=== PATIENT | female | born 1995 | race Caucasian/White ===

== ENCOUNTER 2017-09-17 14:25 | Emergency (ER) | payer OTHER ==
[~2017-09-17] VITALS: Ht 167.6 cm; Wt 59.9 kg
[2017-09-17 14:30] VITALS: TEMP 36.9; Ht 167.6 cm; Wt 59.9 kg
[2017-09-17] MEDS ORDERED: BCPILLS PO (14:44)
[2017-09-17] MEDS ORDERED: SODIUM CHLORIDE 0.9% 1000ML 1,000 ML IV STA (14:53)
[2017-09-17] MEDS ORDERED: CEFTRIAXONE SOD INJ 1 GM ADDVIAL IV STA (14:53)
--- NOTE | 2017-09-17 15:07 | EMERGENCY ROOM VISIT NOTE ---
History Report prepared by [place]: Eva Moser Under the Supervision of: Dr. Chrystal Tony M.D. First contact with patient: 14:44 Chief Complaint: FLU LIKE SX Stated Complaint: SORE THROAT, FEVER History of Present Illness The patient is a 22 year old female who presents to the Emergency Room with complaints of a constant sore throat and fever beginning two days [employer]. She states she was at [facility] yesterday for her sore throat and they recommended she come into the hospital for her blood pressure which was 88/62 there. She was given a shot of ceftriaxone at 1700 yesterday for her throat but currently has a fever and sweats. She denies any coughing, abdominal pain, diarrhea, and SOB. The patient reports she was diagnosed with a yeast infection but noticed it was better today. The patient notes she has not started her Diflucan or clindamycin due to a long wait at the pharmacy counter. She states there had a slight burning while urinating yesterday but it is mostly gone today. She denies any chance of . 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 A total of 10 systems reviewed and were otherwise negative. Past Medical & Surgical Patient denies significant medical history Family History No pertinent family history Social History Smoking Status: Never Smoker Smokeless Tobacco Use: Unknown Marital Status: single Occupation Status: student Current/Historical Medications Scheduled Control Pills ( Control Pills), 1 TAB PO DAILY Cefdinir (Omnicef), 300 MG PO Q12H Allergies Coded Allergies: No Known Allergies (Unverified , 09/17/17) Physical Exam Vital Signs Date Time Temp Pulse Resp B/P (MAP) Pulse Ox O2 Delivery O2 Flow Rate FiO2 09/17/17 17:00 97 18 120/69 99 Room Air 09/17/17 16:36 82 09/17/17 14:30 36.9 101 17 110/74 98 Room Air Physical Exam Vital signs reviewed. Blood pressure seems to be stable. General: Well-appearing female, in no significant distress. HEENT: No scleral icterus, PERRLA, neck supple. Atraumatic. Exudates to the tonsils bilaterally. Cardiovascular: Regular rate and rhythm, no extra sounds. Pulmonary: Clear to auscultation bilaterally, normal work of breathing. Abdomen: Soft, nontender, nondistended, positive bowel sounds. Musculoskeletal: Atraumatic, no peripheral edema. Neurologic: Patient awake alert and oriented x 3. Skin: Warm, dry, no rash Medical Decision & Procedures Laboratory Results 09/17/17 15:30 Red Blood Count 4.14, Mean Corpuscular Volume 84.8, Mean Corpuscular Hemoglobin 28.0, Mean Corpuscular Hemoglobin Concent 33.0, Mean Platelet Volume 10.3, Neutrophils (%) (Auto) 74.1, Lymphocytes (%) (Auto) 14.0, Monocytes (%) (Auto) 11.4, Eosinophils (%) (Auto) 0.1, Basophils (%) (Auto) 0.1, Neutrophils # (Auto ) 10.46, Lymphocytes # (Auto) 1.97, Monocytes # (Auto) 1.61, Eosinophils # (Auto ) 0.02, Basophils # (Auto) 0.02 09/17/17 15:30 Test 09/17/17 15:30 09/17/17 15:39 09/17/17 15:40 White Blood Count 14.12 K/uL (4.8-10.8) Red Blood Count 4.14 M/uL (4.2-5.4) Hemoglobin 11.6 g/dL (12.0-16.0) Hematocrit 35.1 % (37-47) Mean Corpuscular Volume 84.8 fL (80-100) Mean Corpuscular Hemoglobin 28.0 pg (25-34) Mean Corpuscular Hemoglobin Concent 33.0 g/dl (32-36) Platelet Count 265 K/uL (130-400) Mean Platelet Volume 10.3 fL (7.4-10.4) Neutrophils (%) (Auto) 74.1 % Lymphocytes (%) (Auto) 14.0 % Monocytes (%) (Auto) 11.4 % Eosinophils (%) (Auto) 0.1 % Basophils (%) (Auto) 0.1 % Neutrophils # (Auto) 10.46 K/uL (1.4-6.5) Lymphocytes # (Auto) 1.97 K/uL (1.2-3.4) Monocytes # (Auto) 1.61 K/uL (0.11-0.59) Eosinophils # (Auto) 0.02 K/uL (0-0.5) Basophils # (Auto) 0.02 K/uL (0-0.2) RDW Standard Deviation 40.4 fL (36.4-46.3) RDW Coefficient of Variation 13.1 % (11.5-14.5) Immature Granulocyte % (Auto) 0.3 % Immature Granulocyte # (Auto) 0.04 K/uL (0.00-0.02) Anion Gap 7.0 mmol/L (3-11) Est Creatinine Clear Calc Drug Dose 128.1 ml/min Estimated GFR () 147.1 Estimated GFR (Non- 126.9 BUN/Creatinine Ratio 10.5 (10-20) Calcium Level 9.1 mg/dl (8.5-10.1) Total Bilirubin 0.4 mg/dl (0.2-1) Direct Bilirubin < 0.1 mg/dl (0-0.2) Aspartate Amino Transf (AST/SGOT) 29 U/L (15-37) Alanine Aminotransferase (ALT/SGPT) 20 U/L (12-78) Alkaline Phosphatase 42 U/L (45-117) Total Protein 7.7 gm/dl (6.4-8.2) Albumin 3.6 gm/dl (3.4-5.0) Bedside Lactic Acid Venous 0.64 mmol/L (0.90-1.70) Laboratory results per my review. Medications Administered Medications (Trade) Dose Ordered Sig/Zane Route Start Time Stop Time Status Last Admin Dose Admin Sodium Chloride 1,000 ml @ 999 mls/hr Q1H1M STAT IV 09/17/17 14:53 09/17/17 15:53 DC 09/17/17 16:01 999 MLS/HR Ceftriaxone Sodium (Rocephin Inj) 1 gm NOW STAT IV 09/17/17 14:53 09/17/17 14:56 DC 09/17/17 16:01 1 GM Azithromycin (Zithromax Tab) 1,000 mg NOW ONCE PO 09/17/17 17:45 09/17/17 17:46 DC 09/17/17 17:40 1,000 MG ED Course 1447: Past medical records reviewed. The patient was evaluated in room C10. A complete history and physical examination was performed. 1453: Rocephin Inj 1 gm IV Sodium Chloride 1704: Upon reevaluation, the patient appeared to have improvement of her symptoms. I discussed findings with her. She verbalized agreement of the treatment plan. She was discharged home. Medical Decision Differential diagnosis: Etiologies such as strep pharyngitis, viral pharyngitis, mononucleosis, influenza, dehydration, UTI, vaginitis, STI, as well as others were entertained. This patient was evaluated and appeared to be in no significant distress. Physical examination reveals a tonsillitis. The patient has had several pelvic exams therefore it was deferred today. Cultures are pending. A GC and Chlamydia swab was performed on the tonsils. A general throat culture was also performed. The patient stated that her vaginitis seemed to improve after her dose of ceftriaxone yesterday. She did not start her Diflucan or clindamycin. The patient was given an additional dose of IV ceftriaxone 1 g. She was hydrated with normal saline solution. Patient was given a dose of oral ceftriaxone 1000 mg and a prescription for Omnicef. She was advised to not fill the clindamycin prescription. She should likely use the Diflucan while awaiting cultures and vaginitis continues. 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 She will return to the ER for worsening symptoms or any medical concerns. Medication Reconcilliation Current Medication List: was personally reviewed by me Blood Pressure Screening Patient's blood pressure: Normal blood pressure Blood pressure disposition: Did not require urgent referral Impression Primary Impression: Tonsillitis Additional Impression: Vaginitis Scribe Attestation The scribe's documentation has been prepared under my direction and personally reviewed by me in its entirety. I confirm that the note above accurately reflects all work, treatment, procedures, and medical decision making performed by me. Departure Information Dispostion Home / Self-Care Prescriptions Cefdinir (Omnicef) 300 Mg Cap 300 MG PO Q12H for 8 Days, #16 CAP Prov: Chrystal Tony M.D. 09/17/17 Referrals No Doctor, Assigned (PCP) Forms HOME CARE DOCUMENTATION FORM, IMPORTANT VISIT INFORMATION Patient Instructions My [facility] Additional Instructions Diagnosis: Tonsillitis, vaginitis Please contact [facility] for follow-up regarding your cultures. You were given 1 g of ceftriaxone and 1 g of azithromycin in the emergency department today. Start Omnicef 300 mg twice daily for 8 days, starting tomorrow. Tylenol 650 mg every 6 hours as needed for pain or fever. Ibuprofen 600 mg every 6 hours as needed for pain or fever. Drink plenty of clear fluids. Follow-up with [facility] in 1 week for reevaluation. Return to the ER for worsening of symptoms or any medical concerns. Problem Qualifiers
[2017-09-17 15:48] LABS: BASO % 0.1 %; BASO ABS # 0.02 K/uL (0-0.2); EOS % 0.1 %; EOS ABS # 0.02 K/uL (0-0.5); HEMATOCRIT 35.1 % (37-47); HEMOGLOBIN 11.6 g/dL (12.0-16.0); IG# 0.04 K/uL (0.00-0.02); LYMPH ABS # 1.97 K/uL (1.2-3.4); MEAN CELL VOLUME 84.8 fL (80-100); MEAN PLATELET VOLUME 10.3 fL (7.4-10.4); MONO % 11.4 %; MONO ABS # 1.61 K/uL (0.11-0.59); NEUT % 74.1 %; NEUT ABS # 10.46 K/uL (1.4-6.5); PLATELET COUNT 265 K/uL (130-400); RED CELL DISTRIBUTION WIDTH CV 13.1 % (11.5-14.5); RED CELL DISTRIBUTION WIDTH SD 40.4 fL (36.4-46.3); WHITE BLOOD COUNT 14.12 K/uL (4.8-10.8)
[2017-09-17 16:12] LABS: ALBUMIN 3.6 gm/dl (3.4-5.0); ALT/SGPT 20 U/L (12-78); AST/SGOT 29 U/L (15-37); BLOOD UREA NITROGEN 7 mg/dl (7-18); CALCIUM 9.1 mg/dl (8.5-10.1); CARBON DIOXIDE 25 mmol/L (21-32); CREATININE 0.65 mg/dl (0.60-1.20); GLUCOSE 91 mg/dl (70-99); POTASSIUM 3.3 mmol/L (3.5-5.1); SODIUM 136 mmol/L (136-145)
[2017-09-17 16:15] LABS: ALKALINE PHOSPHATASE 42 U/L (45-117); TOTAL PROTEIN 7.7 gm/dl (6.4-8.2)
[2017-09-17 17:00] VITALS: BP 120/69; PULSE 97; O2SAT 99
[2017-09-17] MEDS ORDERED: CEFD1CAP14 PO (17:36)
[2017-09-17] MEDS ORDERED: AZITHROMYCIN 250 MG TAB PO ONE (17:45)
== END 2017-09-17 17:40 | disposition home or self-care (01) ==
LOC: C.EDB 14:28 → C.EDC 17:40
DX: J03.90 Acute tonsillitis, unspecified (principal); N76.0 Acute vaginitis; R50.9 Fever, unspecified; R61 Generalized hyperhidrosis